=== PATIENT | female | born 1995 | race American Indian/Alaskan Native ===

== ENCOUNTER 2017-09-06 18:14 | Emergency (ER) | payer BC ==
[2017-09-06 18:20] VITALS: RESP 18
--- NOTE | 2017-09-06 18:58 | C.PDOC ---
History Of Present Illness 21 y/o female presents to the ER complaining of vaginal bleeding which occurred today. Patient reports that she had her last period in July 2017. Patient states that she had some vaginal spotting last week. At that time, she took a test and the test was positive. She reports that she had vaginal bleeding yesterday. Therefore, she took another test and the test was negative. Patient came to the ER because she would like to know if she is . Of note, patient states that she was 1 time and she had an . Time Seen by Provider: 09/06/17 18:44 Chief Complaint (Nursing): Female Genitourinary History Per: Patient History/Exam Limitations: no limitations Onset/Duration Of Symptoms: Days Severity: Moderate Past Medical History Reviewed: Historical Data, Nursing Documentation, Vital Signs Vital Signs: Last Vital Signs Temp 98 F 09/06/17 18:16 Pulse 83 09/06/17 18:16 Resp 18 09/06/17 18:16 BP 141/91 H 09/06/17 18:16 Pulse Ox 100 09/06/17 22:33 - Medical History PMH: No Chronic Diseases Surgical History: No Surg Hx Family History: States: No Known Family Hx - Social History Hx Alcohol Use: No Hx Substance Use: No - Immunization History Hx Tetanus Toxoid Vaccination: No Hx Influenza Vaccination: No Hx Pneumococcal Vaccination: No Review Of Systems Except As Marked, All Systems Reviewed And Found Negative. Constitutional: Negative for: Fever, Chills Gastrointestinal: Negative for: Nausea, Vomiting, Diarrhea Genitourinary: Negative for: Vaginal Bleeding (no vaginal bleeding in the ER) Physical Exam - Physical Exam Appears: Non-toxic, No Acute Distress Skin: Normal Color, Warm Head: Atraumatic, Normacephalic Eye(s): bilateral: Normal Inspection, PERRL Nose: Normal Oral Mucosa: Moist Neck: Supple Chest: Symmetrical Cardiovascular: Rhythm Regular Respiratory: Normal Breath Sounds, No Accessory Muscle Use, No Rales, No Rhonchi , No Wheezing Gastrointestinal/Abdominal: Normal Exam, Soft, No Tenderness Extremity: Normal ROM Neurological/Psych: Oriented x3, Normal Speech, Normal Cognition, Normal Motor, Normal Sensation ED Course And Treatment - Laboratory Results Result Diagrams: 09/06/17 19:06 09/06/17 19:06 Lab Interpretation: Abnormal Interpretation Of Abnormal: BHCG 07819.00, Blood type O+ O2 Sat by Pulse Oximetry: 100 (RA) Pulse Ox Interpretation: Normal - CT Scan/US US transvaginal Other Rad Studies (CT/US): Read By Radiologist, Radiology Report Reviewed CT/US Interpretation: EXAM: US First Trimester, Transabdominal. CLINICAL HISTORY: 21 years old, female; Signs and symptoms; Lmp or gestational age (in weeks): 12-13-17; Other: Vag. bleed; ; Additional info: bleeding. TECHNIQUE: Real-time transabdominal obstetrical ultrasound of the maternal pelvis and a first trimester. with image documentation. COMPARISON: No relevant prior studies available. FINDINGS: Gestation: Two gestational sacs with yolk sacs. No poles. Mean sac A diameter of 0.8 cm, out. of range. Mean sac B diameter of 0.9 cm, out of range. Uterus/cervix: No subchorionic hemorrhage. No cervical dilatation or effacement. Ovaries: RIGHT ovary: 3.5 x 3.3 x 3.3 septated hypoechoic lesion. LEFT ovary: Normal. No. adnexal masses. Free fluid: Small free fluid within pelvis. IMPRESSION: 1. Twin intrauterine , of uncertain viability. Recommend followup. 2. Probable RIGHT ovarian cyst. EXAM: US , Transvaginal. CLINICAL HISTORY: 21 years old, female; Signs and symptoms; Lmp or gestational age (in weeks): 12-13-17; Other: Vag. bleed; ; Additional info: bleeding. TECHNIQUE: Real-time transvaginal obstetrical ultrasound of the maternal pelvis and a first trimester . with image documentation. Transvaginal imaging was used for better evaluation of the fetus and. adnexa. COMPARISON: No relevant prior studies available. FINDINGS: Gestation: Two gestational sacs with yolk sacs. No poles. Mean sac A diameter of 0.8 cm, out. of range. Mean sac B diameter of 0.9 cm, out of range. Uterus/cervix: No subchorionic hemorrhage. No cervical dilatation or effacement. Ovaries: RIGHT ovary: 3.5 x 3.3 x 3.3 septated hypoechoic lesion. LEFT ovary: Normal. No. adnexal masses. Free fluid: Small free fluid within pelvis. IMPRESSION: 1. Twin intrauterine , of uncertain viability. Recommend followup. 2. Probable RIGHT ovarian cyst Reevaluation Time: 22:34 Reassessment Condition: Unchanged (Patient states that she has an OB appointment in 2 days.) Medical Decision Making Medical Decision Making: Plan: --Labs --Beta HCG Quant. Disposition Counseled Patient/Family Regarding: Studies Performed, Diagnosis, Need For Followup - Disposition [facility] [Outside] Disposition: HOME/ ROUTINE Disposition Time: 22:35 Condition: STABLE Instructions: Threatened Miscarriage (ED) Forms: [employer] (Bel[place]ian) - Clinical Impression Clinical Impression: Twin in first trimester - Scribe Statement The provider has reviewed the documentation as recorded by the Scribe Hakan Matias Provider Attestation: All medical record entries made by the Scribe were at my direction and personally dictated by me. I have reviewed the chart and agree that the record accurately reflects my personal performance of the history, physical exam, medical decision making, and the department course for this patient. I have also personally directed, reviewed, and agree with the discharge instructions and disposition.
[2017-09-06 19:25] LABS: BASO # 0.1 K/uL (0.0-0.2); BASO % 0.9 % (0.0-2.0); CALCIUM 9.1 mg/dl (8.6-10.4); EOS # 0.2 K/uL (0.0-0.7); EOS % 1.3 % (0.0-4.0); GFR AFRICAN-AMERICAN > 60; GFR NON-AFRICAN AMERICAN > 60; HEMOGLOBIN 13.2 g/dL (11.0-16.0); LYMPH % 16.6 % (20.0-40.0); MEAN CELL VOLUME 94.2 fL (81.0-99.0); MEAN CORPUSCULAR HEMOGLOBIN 31.3 pg (27.0-31.0); MEAN CORPUSCULAR HGB CONC 33.2 g/dL (33.0-37.0); MEAN PLATELET VOLUME 12.5 fL (7.2-11.7); MONO # 0.6 K/uL (0.0-0.8); NEUT # 9.2 K/uL (1.8-7.0); NEUT % 76.2 % (50.0-75.0); NRBC % 0.2 % (0.0-2.0); RBC 4.22 Mil/uL (3.80-5.20); RED CELL DISTRIBUTION WIDTH 12.4 % (11.5-14.5)
[2017-09-06 19:37] LABS: ALB/GLOB RATIO 1.3 (1.0-2.1); ALBUMIN 4.8 g/dL (3.5-5.0); ALT/SGPT 8 U/L (9-52); AST/SGOT 36 U/L (14-36); BLOOD UREA NITROGEN 9 mg/dL (7-17)
--- NOTE | 2017-09-06 22:16 | US ---
EXAM: US First Trimester, Transabdominal CLINICAL HISTORY: 21 years old, female; Signs and symptoms; Lmp or gestational age (in weeks): 12-13-17; Other: Vag bleed; ; Additional info: bleeding TECHNIQUE: Real-time transabdominal obstetrical ultrasound of the maternal pelvis and a first trimester with image documentation. COMPARISON: No relevant prior studies available. FINDINGS: Gestation: Two gestational sacs with yolk sacs. No poles. Mean sac A diameter of 0.8 cm, out of range. Mean sac B diameter of 0.9 cm, out of range. Uterus/cervix: No subchorionic hemorrhage. No cervical dilatation or effacement. Ovaries: RIGHT ovary: 3.5 x 3.3 x 3.3 septated hypoechoic lesion. LEFT ovary: Normal. No adnexal masses. Free fluid: Small free fluid within pelvis. IMPRESSION: 1. Twin intrauterine , of uncertain viability. Recommend followup. 2. Probable RIGHT ovarian cyst. EXAM: US , Transvaginal CLINICAL HISTORY: 21 years old, female; Signs and symptoms; Lmp or gestational age (in weeks): 12-13-17; Other: Vag bleed; ; Additional info: bleeding TECHNIQUE: Real-time transvaginal obstetrical ultrasound of the maternal pelvis and a first trimester with image documentation. Transvaginal imaging was used for better evaluation of the fetus and adnexa. COMPARISON: No relevant prior studies available. FINDINGS: Gestation: Two gestational sacs with yolk sacs. No poles. Mean sac A diameter of 0.8 cm, out of range. Mean sac B diameter of 0.9 cm, out of range. Uterus/cervix: No subchorionic hemorrhage. No cervical dilatation or effacement. Ovaries: RIGHT ovary: 3.5 x 3.3 x 3.3 septated hypoechoic lesion. LEFT ovary: Normal. No adnexal masses. Free fluid: Small free fluid within pelvis.
[2017-09-06 22:48] VITALS: BP 109/64; PULSE 79; TEMP 98.3; O2SAT 97
== END 2017-09-06 22:49 | disposition home or self-care (01) ==
LOC: C.ER 18:14
DX: O26.891 Other specified pregnancy related conditions, first trimester (principal); Z3A.00 Weeks of gestation of pregnancy not specified